=== PATIENT | male | born 1995 | race Caucasian/White ===

== ENCOUNTER 2019-12-24 22:48 | Emergency (ER) | payer BC, SELFPAY ==
[2019-12-24 23:28] LABS: Absolute Lymphocytes (CBC) 1.9 K/uL (0.7-4.9); Basophils % 0.3 % (0-1.3); Lymphocytes % 29.4 % (15.3-44.8); MPV 8.7 fL (7.6-11.3); Protime INR 1.03; RBC Red Blood Cell Count 4.92 M/uL (4.33-5.43)
[2019-12-24 23:43] LABS: ALT/SGPT 36 U/L (12-78); AST/SGOT 18 U/L (15-37); Albumin 3.6 g/dL (3.4-5.0); Alkaline Phosphatase 115 U/L (45-117); BUN Blood Urea Nitrogen 8 mg/dL (7-18); Bicarbonate 25 mmol/L (21-32); Bilirubin Direct 0.1 mg/dL (0-0.2); Bilirubin Total 0.6 mg/dL (0.2-1.0); Glucose Level 122 mg/dL (74-106); Magnesium 1.9 mg/dL (1.8-2.4); NT PRO-BNP 15 pg/mL (<125); Potassium 3.2 mmol/L (3.5-5.1); Protein, Total 6.4 g/dL (6.4-8.2); Sodium Level 143 mmol/L (136-145); Troponin (Emerg Dept Use Only) < 0.02 ng/mL (0.0-0.045)
[2019-12-25] MEDS ORDERED: POTASSIUM CL SA 10 MEQ TAB PO ONE (01:21)
[2019-12-25 01:44] LABS: Barbiturates NEGATIVE (NEGATIVE); Benzodiazepines NEGATIVE (NEGATIVE); Cocaine NEGATIVE (NEGATIVE); METHAMPHETAM NEGATIVE (NEGATIVE); Methadone NEGATIVE (NEGATIVE); Opiates NEGATIVE (NEGATIVE); Phencyclidine NEGATIVE (NEGATIVE); THC Cannibis NEGATIVE (NEGATIVE)
--- NOTE | 2019-12-25 03:47 | EDPHYS ---
Physician Documentation [facility] Name: Rafael Campbell Age: 24 yrs Sex: Male : 1995 Arrival Date: 12/24/2019 Time: 22:50 Bed 15 Private MD: ED Physician Maged Reyes HPI: 12/24 00:17 This 24 yrs old Male presents to ER via EMS with complaints of Chest Pain. [facility] 00:17 The patient or guardian reports chest pain that is located primarily in the anterior mh7 chest wall, left. The pain radiates to the left arm. Associated signs and symptoms: Pertinent positives: shortness of breath, Pertinent negatives: abdominal pain, cough, diaphoresis, dizziness, headache, lower extremity pain, lower extremity swelling, lightheadedness, nausea, near syncope, palpitations, recent travel, syncope, vomiting. The chest pain is described as stabbing. Duration: The patient or guardian reports a single episode, that is still ongoing, but improving. Modifying factors: The symptoms are alleviated by nothing. the symptoms are aggravated by movement. Severity of pain: At its worst the pain was moderate today, in the emergency department the pain has improved moderately. EMS care prior to arrival includes: aspirin. 00:17 States that he had belching then started to have left upper chest pain that radiated to mh7 his left arm. he also had some SOB. Denies any injuries, fever, cough, dizziness, numbness/tingling, or weakness.. Historical: - Allergies: 12/23 23:03 No Known Allergies; mt2 - Home Meds: 23:03 None [Active]; mt2 - PMHx: 23:03 Kidney stones; mt2 - Immunization history:: Adult Immunizations up to date. - Social history:: Smoking status: Patient reports the use of cigarette tobacco products, smokes one-half pack cigarettes per day, Patient/guardian denies using street drugs. ROS: 12/24 00:17 Constitutional: Negative for fever, chills, and weight loss, Eyes: Negative for injury, mh7 pain, redness, and discharge, ENT: Negative for injury, pain, and discharge, Neck: Negative for injury, pain, and swelling, Abdomen/GI: Negative for abdominal pain, nausea, vomiting, diarrhea, and constipation, Back: Negative for injury and pain, : Negative for injury, bleeding, discharge, and swelling, Skin: Negative for injury, rash, and discoloration, Neuro: Negative for headache, weakness, numbness, tingling, and seizure, Psych: Negative for depression, anxiety, suicide ideation, homicidal ideation, and hallucinations, Allergy/Immunology: Negative for hives, rash, and allergies, Endocrine: Negative for neck swelling, polydipsia, polyuria, polyphagia, and marked weight changes, Hematologic/Lymphatic: Negative for swollen nodes, abnormal bleeding, and unusual bruising. Exam: 00:17 Constitutional: This is a well developed, well nourished patient who is awake, alert, mh7 and in no acute distress. Head/Face: Normocephalic, atraumatic. Eyes: Pupils equal round and reactive to light, extra-ocular motions intact. Lids and lashes normal. Conjunctiva and sclera are non-icteric and not injected. Cornea within normal limits. Periorbital areas with no swelling, redness, or edema. Neck: Trachea midline, no thyromegaly or masses palpated, and no cervical lymphadenopathy. Supple, full range of motion without nuchal rigidity, or vertebral point tenderness. No Meningismus. 00:17 Cardiovascular: Regular rate and rhythm with a normal S1 and S2. No gallops, murmurs, or rubs. Normal PMI, no JVD. No pulse deficits. Respiratory: Lungs have equal breath sounds bilaterally, clear to auscultation and percussion. No rales, rhonchi or wheezes noted. No increased work of breathing, no retractions or nasal flaring. Abdomen/GI: Soft, non-tender, with normal bowel sounds. No distension or tympany. No guarding or rebound. No evidence of tenderness throughout. Back: No spinal tenderness. No costovertebral tenderness. Full range of motion. Skin: Warm, dry with normal turgor. Normal color with no rashes, no lesions, and no evidence of cellulitis. MS/ Extremity: Pulses equal, no cyanosis. Neurovascular intact. Full, normal range of motion. Neuro: Awake and alert, GCS 15, oriented to person, place, time, and situation. Cranial nerves II-XII grossly intact. Motor strength 5/5 in all extremities. Sensory grossly intact. Cerebellar exam normal. Normal gait. Psych: Awake, alert, with orientation to person, place and time. Behavior, mood, and affect are within normal limits. 00:17 Chest/axilla: Inspection: normal, Palpation: tenderness, that is moderate, of the anterior aspect of left upper chest, that totally reproduces the patient's complaints. 04:32 ECG was reviewed by the Attending Physician. [facility] Vital Signs: 12/23 22:45 BP 135 / 95; Pulse 67; Resp 17; Temp 98.1(O); Pulse Ox 97% on R/A; Weight 104.33 kg; mt2 Height 5 ft. 11 in. (180.34 cm); Pain 6/10; 12/24 00:00 BP 115 / 63; Pulse 66; Resp 16; Pulse Ox 96% on R/A; jb4 01:00 BP 107 / 67; Pulse 58; Resp 16; Pulse Ox 96% on R/A; jb4 02:00 BP 109 / 79; Pulse 57; Resp 16; Pulse Ox 100% on R/A; jb4 03:00 BP 120 / 77; Pulse 55; Resp 16; Pulse Ox 97% on R/A; jb4 03:45 BP 115 / 75; Pulse 53; Resp 16; Pulse Ox 98% on R/A; jb4 12/23 22:45 Body Mass Index 32.08 (104.33 kg, 180.34 cm) mt2 MDM: 00:03 Patient medically screened. [facility] 03:44 Differential diagnosis: acute myocardial infarction, anxiety, chest wall pain, 7 costochondritis, pericarditis, pneumonia, pneumothorax, pulmonary embolus. HEART Score: History: Slightly Suspicious (0), ECG: Non specific repolarization disturbance / LBTB / PM (1), Age: < or = 45 years (0), Risk Factors: 1 or 2 risk factors (1), [+ Family HX] Troponin: < or = 1 x Normal Limit (0), Total Score = 2. Data reviewed: vital signs, nurses notes, EMS record, lab test result(s), cardiac enzymes, CBC, electrolytes, urinalysis, EKG, radiologic studies, plain films. Data interpreted: Pulse oximetry: on room air is 100 %. Interpretation: normal. Counseling: I had a detailed discussion with the patient and/or guardian regarding: the historical points, exam findings, and any diagnostic results supporting the discharge/admit diagnosis, lab results, radiology results, the need for outpatient follow up, to return to the emergency department if symptoms worsen or persist or if there are any questions or concerns that arise at home. Response to treatment: the patient's symptoms have resolved after treatment, the patient's blood pressure is in an acceptable range, mental status has returned to baseline, the patient no longer shows bradycardia, the patient is not short of breath, the patient is not tachycardic, the patient's pain is gone, the patient's temperature has normalized. 12/23 23:05 Order name: Basic Metabolic Panel; Complete Time: 00:03 mt2 12/23 23:05 Order name: CBC with Diff; Complete Time: 00:03 hi2 12/23 23:05 Order name: LFT's; Complete Time: 00:03 hi2 12/23 23:05 Order name: Magnesium; Complete Time: 00:03 hi2 12/23 23:05 Order name: NT PRO-BNP; Complete Time: 00:03 hi2 12/23 23:05 Order name: PT-INR; Complete Time: 02:44 mt2 12/23 23:05 Order name: Troponin (emerg Dept Use Only); Complete Time: 00:03 hi2 12/23 23:05 Order name: XRAY Chest (1 view) mt2 12/24 01:27 Order name: Urine Drug Screen; Complete Time: 01:46 EDMS 12/24 01:33 Order name: D-Dimer; Complete Time: 02:44 EDMS 12/24 02:45 Order name: Troponin (emerg Dept Use Only); Complete Time: 03:41 mh7 12/23 23:05 Order name: EKG; Complete Time: 23:06 mt2 12/23 23:05 Order name: Cardiac monitoring; Complete Time: 23:07 mt2 12/23 23:05 Order name: EKG - Nurse/Tech; Complete Time: 23:05 hi2 12/23 23:05 Order name: IV Saline Lock; Complete Time: 23:05 mt2 12/23 23:05 Order name: Labs collected and sent; Complete Time: 23:07 mt2 12/23 23:05 Order name: O2 Per Protocol; Complete Time: 23:07 hi2 12/23 23:05 Order name: O2 Sat Monitoring; Complete Time: 23:05 mt2 EC:32 Rate is 75 beats/min. Rhythm is regular, Normal Sinus Rhythm. QRS [place] is Normal. CT mh7 interval is normal. QRS interval is normal. QT interval is normal. No Q waves. T waves are Inverted in lead V1. No ST changes noted. Clinical impression: NSR w/ Non-specific ST/T Changes. Administered Medications: 01:15 Drug: Potassium Chloride 40 mEq Route: PO; jb4 02:00 Follow up: Response: No adverse reaction jb4 Disposition: 06:17 Co-signature as Attending Physician, Maged Reyes MD. 7 Disposition: 12/25/19 03:46 Discharged to Home. Impression: Chest Pain. - Condition is Stable. - Discharge Instructions: Nonspecific Chest Pain, Shmi-lc-Fuph. - Medication Reconciliation Form, Thank You Letter, Antibiotic Education, Prescription Opioid Use form. - Work release form (12/25/19 19:36). bb - Follow up: Private Physician; When: 1 - 2 days; Reason: Worsening of condition, Recheck today's complaints, Continuance of care, Re-evaluation by your physician. - Problem is new. - Symptoms are resolved. Signatures: Dispatcher [employer] EDOR Javier Medina RN RN jb4 Maged Reyes MD MD 7 Josephine Enciso RN RN hi2 Shwetha Thakur RN bb Corrections: (The following items were deleted from the chart) 01:32 01:22 URINE DRUG SCREEN+CHEM UR.LAB.BRZ ordered. EDOR EDMS 01:32 01:22 D-DIMER+COAG.LAB.BRZ ordered. EDOR EDMS 04:06 03:46 12/25/2019 03:46 Discharged to Home. Impression: Chest Pain. Condition is Stable. jb4 Forms are Medication Reconciliation Form, Thank You Letter, Antibiotic Education, Prescription Opioid Use. Follow up: Private Physician; When: 1 - 2 days; Reason: Worsening of condition, Recheck today's complaints, Continuance of care, Re-evaluation by your physician. Problem is new. Symptoms are resolved. [facility]
--- NOTE | 2019-12-25 03:47 | ER ---
Nurse's Notes [facility] Name: Rafael Campbell Age: 24 yrs Sex: Male : 1995 Arrival Date: 12/24/2019 Time: 22:50 Bed 15 Private MD: Diagnosis: Chest Pain Presentation: 12/23 22:45 Chief complaint: EMS states: BIBA FROM WORK WITH SUDDEN ONSET OF LEFT SIDED CP mt2 RADIATING TO LEFT ARM. LEFT ARM WITH NUMBNESS AND WEAKNESS. PT DENIES N/V OR SOB. PT DENIES DRUGS OR ETOH. EKG NSR WITH EMS AND ASA 324 GIVEN. Coronavirus screen: Client denies travel out of the [place] in the last 14 days. At this time, the client does not indicate any symptoms associated with coronavirus-19. Ebola Screen: No symptoms or risks identified at this time. Initial Sepsis Screen: Does the patient meet any 2 criteria? No. Patient's initial sepsis screen is negative. Does the patient have a suspected source of infection? No. Patient's initial sepsis screen is negative. Risk Assessment: Do you want to hurt yourself or someone else? Patient reports no desire to harm self or others. Onset of symptoms. Care prior to arrival: Medication(s) given: ASA, 324 IV initiated. 22 GA, in the right antecubital area. 22:45 Method Of Arrival: EMS: [facility] mt2 22:45 Acuity: ALLY 3 mt2 Historical: - Allergies: 23:03 No Known Allergies; mt2 - Home Meds: 23:03 None [Active]; mt2 - PMHx: 23:03 Kidney stones; mt2 - Immunization history:: Adult Immunizations up to date. - Social history:: Smoking status: Patient reports the use of cigarette tobacco products, smokes one-half pack cigarettes per day, Patient/guardian denies using street drugs. Screenin:04 Abuse screen: Denies threats or abuse. Nutritional screening: No deficits noted. mt2 Tuberculosis screening: No symptoms or risk factors identified. Fall Risk None identified. Assessment: 22:50 General: Appears in no apparent distress. uncomfortable, Behavior is cooperative, jb4 anxious. Pain: Complains of pain in anterior aspect of left upper chest Pain does not radiate. Pain currently is 6 out of 10 on a pain scale. Quality of pain is described as stabbing, Pain began 30 min ago. Neuro: Level of Consciousness is awake, alert, obeys commands, Oriented to person, place, time, situation. Cardiovascular: Patient's skin is warm and dry. Rhythm is sinus rhythm. Respiratory: Airway is patent Respiratory effort is even, unlabored, Respiratory pattern is regular, symmetrical. GI: No signs and/or symptoms were reported involving the gastrointestinal system. : No signs and/or symptoms were reported regarding the genitourinary system. 23:50 Reassessment: Patient and/or family updated on plan of care and expected duration. Pain jb4 level reassessed. Patient is alert, oriented x 3, equal unlabored respirations, skin warm/dry/pink. Pt is resting calmly in bed. Remains A\T\Ox4. No s/s of distress noted. EENT: No signs and/or symptoms were reported regarding the EENT system. Derm: Skin is intact, Skin is pink, warm \T\ dry. Musculoskeletal: Circulation, motion, and sensation intact. Range of motion: intact in all extremities. 12/24 01:00 Reassessment: Patient and/or family updated on plan of care and expected duration. Pain jb4 level reassessed. Patient is alert, oriented x 3, equal unlabored respirations, skin warm/dry/pink. PT updated on POC. Pt is resting comfortably in bed, reports pain has decreased. to 2/10. Respirations are even and unlabored. No s/s of pain or distress are noted. 02:00 Reassessment: Patient and/or family updated on plan of care and expected duration. Pain jb4 level reassessed. Patient is alert, oriented x 3, equal unlabored respirations, skin warm/dry/pink. Pt is sitting up in bed. Reports feeling better. PT has his phone that his fiance brought to him. Updated on POC. 03:00 Reassessment: Patient and/or family updated on plan of care and expected duration. Pain jb4 level reassessed. Patient is alert, oriented x 3, equal unlabored respirations, skin warm/dry/pink. PT resting in bed comfortably. No s/s of pain or distress noted. 04:00 Reassessment: No changes from previously documented assessment. Patient and/or family jb4 updated on plan of care and expected duration. Pain level reassessed. Patient is alert, oriented x 3, equal unlabored respirations, skin warm/dry/pink. PT verbalized understanding of d/c and follow up instructions. Denies questions or concerns. Ambulated out of ED with steady gait. Vital Signs: 12/23 22:45 BP 135 / 95; Pulse 67; Resp 17; Temp 98.1(O); Pulse Ox 97% on R/A; Weight 104.33 kg; mt2 Height 5 ft. 11 in. (180.34 cm); Pain 6/10; 12/24 00:00 BP 115 / 63; Pulse 66; Resp 16; Pulse Ox 96% on R/A; jb4 01:00 BP 107 / 67; Pulse 58; Resp 16; Pulse Ox 96% on R/A; jb4 02:00 BP 109 / 79; Pulse 57; Resp 16; Pulse Ox 100% on R/A; jb4 03:00 BP 120 / 77; Pulse 55; Resp 16; Pulse Ox 97% on R/A; jb4 03:45 BP 115 / 75; Pulse 53; Resp 16; Pulse Ox 98% on R/A; jb4 12/23 22:45 Body Mass Index 32.08 (104.33 kg, 180.34 cm) mt2 ED Course: 12/23 22:50 Patient arrived in ED. mt2 22:56 Maged Reyes MD is Attending Physician. [facility] 23:03 Triage completed. mt2 23:03 Arm band placed on left wrist. EKG completed in triage. Results shown to MD. mt2 23:03 Patient has correct armband on for positive identification. Bed in low position. Call [facility] light in reach. Side rails up X 1. 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 Pulse ox on. NIBP on. 23:03 Maintain EMS IV. Dressing intact. Good blood return noted. Site clean \T\ dry. Gauge \T\ mt 2 site: 20 G. Patient maintains SpO2 saturation greater than 95% on room air. 23:05 Initial lab(s) drawn, by me, sent to lab. 4 23:07 Javier Medina, RN is Primary Nurse. [facility] 12/24 03:28 XRAY Chest (1 view) In Process Unspecified. EDMS 04:05 No provider procedures requiring assistance completed. IV discontinued, intact, jb4 bleeding controlled, No redness/swelling at site. Pressure dressing applied. Administered Medications: 01:15 Drug: Potassium Chloride 40 mEq Route: PO; jb4 02:00 Follow up: Response: No adverse reaction jb4 Outcome: 03:46 Discharge ordered by . mahnaz 04:05 Discharged to home ambulatory. jb4 04:05 Condition: stable 04:05 Discharge instructions given to patient, Instructed on discharge instructions, follow up and referral plans. Demonstrated understanding of instructions, follow-up care. 04:06 Patient left the ED. jb4 Signatures: Dispatcher [employer] EDJavier Lawson, RN RN jb4 Maged Reyes MD MD mh7 Josephine Enciso RN RN mt2
[2019-12-25 04:25] VITALS: BP 115/75; O2SAT 98
--- NOTE | 2019-12-25 07:28 | RAD REPORT ---
EXAM DESCRIPTION: RAD - Chest Single View - 12/25/2019 3:28 am CLINICAL HISTORY: CHEST PAIN COMPARISON: Portable June 2017 TECHNIQUE: AP portable chest image was obtained 12/25/2019 3:28 am . FINDINGS: Low lung volumes noted. No focal lung parenchymal process. Heart and vasculature are yesica l. No measurable pleural effusion and no pneumothorax. No acute bony abnormality seen. No acute aorti c findings suspected. IMPRESSION: No acute cardiopulmonary process. No significant change from comparison.
== END 2019-12-25 04:06 | disposition home or self-care (01) ==
LOC: ER 22:48
DX: R07.9 Chest pain, unspecified (principal); F17.210 Nicotine dependence, cigarettes, uncomplicated
CPT/HCPCS: 36415; 71045; 80048; 80076; 80307; 83735; 83880; 84484; 85025; 85379; 85610; 93005; 99285

== ENCOUNTER 2022-11-24 20:33 | Emergency (ER) | payer BC, SELFPAY ==
--- OUTSIDE RECORDS SUMMARY | 2022-11-24 20:36 | XMS REPORT | Continuity of Care Document ---
:1995 Author Organization [facility] t Address [address] [facility] [address] [place] [id number] Care Team Providers Name Role Phone jailene Attending Clinician Unavailable jailene Admitting Clinician Unavailable Problems This patient has no known problems. Allergies, Adverse Reactions, Alerts This patient has no known allergies or adverse reactions. Medications This patient has no known medications. Procedures This patient has no known procedures. Encounters Start End Encounter Admission Attending Care Care Encounter Source Date/Time Date/Time Type Type Clinicians Facility Department ID 2020-09-20 2020-09-20 Outpatient jailene [id number] 10:05:00 10:05:00 [id number] 2020-02-16 2020-02-16 Outpatient [facility] [id number] 00:00:00 00:00:[address] 2017-02-16 2017-02-16 Outpatient [facility] [id number] 10:50:00 10:50:00 00 l Alex Results This patient has no known results.
--- NOTE | 2022-11-24 22:37 | RAD REPORT ---
EXAM DESCRIPTION: CT - Head C Spine Cap [place] - 11/24/2022 9:49 pm CLINICAL HISTORY: fall COMPARISON: No comparisons TECHNIQUE: Head and cervical spine CT images were obtained without IV contrast. Chest, abdomen, and pelvis CT images were obtained following intravenous administration of 100 mL Isovue-300. Multiplanar reformats were generated and reviewed. All CT scans are performed using dose optimization technique as appropriate and may include automated exposure control or mA/KV adjustment according to patient size. FINDINGS: CT HEAD: No intracranial hemorrhage, mass effect, or edema. No evidence of acute territorial infarct. No midli ne shift or abnormal fluid collection. The ventricles are normal in caliber and configuration for age . Basal cisterns are patent. Mastoid air cells are well aerated. Bilateral maxillary sinus and right sphenoid sinus mucous retention cysts. No acute skull fracture. CT CERVICAL SPINE: No acute cervical spine fracture or subluxation. Vertebral body heights are well maintained. Straight ening of normal cervical lordosis which may be positional or secondary to muscle spasm. Facet joints are normal in alignment. No hyperattenuating canal hematoma. Prevertebral and paraspinous soft tissue s are unremarkable. CT CHEST: No pneumothorax, pulmonary contusion or pleural fluid collection. Bilateral dependent platelike atele ctasis. No mediastinal hematoma and the aorta and pulmonary arteries are unremarkable. No chest will mass or abnormal axillary finding. No displaced rib fracture or other significant bony finding. CT ABDOMEN/ PELVIS: No evidence of traumatic injury to solid abdominal viscera. Gallbladder and biliary tree are unremark able. No bowel injury or significant finding. No free air, free fluid or abnormal fat stranding. No u rinary bladder abnormality. No significant bony finding. IMPRESSION: No acute traumatic findings. Bilateral maxillary sinus and right sphenoid sinus mucous retention cysts. Straightening of normal cervical lordosis which may be positional secondary to muscle spasm.
[2022-11-24 23:06] LABS: Hematocrit 44.8 % (39.6-49.0); RBC Red Blood Cell Count 4.92 M/uL (4.33-5.43)
[2022-11-24] MEDS ORDERED: CYCLOBENZAPRINE 10 MG TAB ONE (23:09)
[2022-11-24] MEDS ORDERED: KETOROLAC 30 MG/ML INJ ONE (23:09)
[2022-11-24] MEDS ORDERED: MORPHINE 4 MG/ML SYR ONE (23:09)
[2022-11-24] MEDS ORDERED: ONDANSETRON 4 MG/2 ML VIAL ONE (23:10)
[2022-11-24] MEDS ORDERED: NA CHLORIDE 0.9% 1,000 ML ONE (23:10)
[2022-11-24 23:24] LABS: Albumin 3.6 g/dL (3.4-5.0); Bilirubin Total 0.6 mg/dL (0.2-1.0); Potassium 4.4 mEq/L (3.5-5.1); Protein, Total 6.7 g/dL (6.4-8.2)
--- NOTE | 2022-11-24 23:47 | EDPHYS ---
Physician Documentation [facility] Name: Rafael Campbell Age: 27 yrs Sex: Male : 1995 Arrival Date: 11/24/2022 Time: 20:33 Bed 15 Private MD: ED Physician Donavon Nunez HPI: 11/25 02:38 This 27 yrs old Male presents to ER via Ambulatory with complaints of Fever, Fall rt Injury, Vomiting. 02:38 Patient presents to the ED with nausea, vomiting, diarrhea, generalized abdominal pain rt all day today. The patient states that his dog caused him to trip, causing him to fall down about 15 stairs injuring his tailbone. He reports a worsening of his chronic back pain since then. He reports feeling feverish. Denies other acute complaints at this time. Symptoms are moderate severity, no other aggravating alleviating factors.. 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 - Family history:: not pertinent. ROS: 11/25 02:38 Constitutional: Negative for fever, chills, and weight loss, Cardiovascular: Negative rt for chest pain, palpitations, and edema, MS/Extremity: Negative for injury and deformity, Skin: Negative for injury, rash, and discoloration, Neuro: Negative for headache, weakness, numbness, tingling, and seizure, Psych: Negative for depression, anxiety, suicide ideation, homicidal ideation, and hallucinations. Abdomen/GI: Positive for abdominal pain, nausea, vomiting, and diarrhea. Back: Positive for pain at rest, pain with movement. Exam: 02:38 Constitutional: This is a well developed, well nourished patient who is awake, alert, rt and in no acute distress. Head/Face: Normocephalic, atraumatic. Neck: Trachea midline, no thyromegaly or masses palpated, and no cervical lymphadenopathy. Supple, full range of motion without nuchal rigidity, or vertebral point tenderness. No Meningismus. Chest/axilla: Normal chest wall appearance and motion. Nontender with no deformity. No lesions are appreciated. Cardiovascular: Regular rate and rhythm with a normal S1 and S2. No gallops, murmurs, or rubs. Normal PMI, no JVD. No pulse deficits. Respiratory: Lungs have equal breath sounds bilaterally, clear to auscultation and percussion. No rales, rhonchi or wheezes noted. No increased work of breathing, no retractions or nasal flaring. Abdomen/GI: Soft, non-tender, with normal bowel sounds. No distension or tympany. No guarding or rebound. No evidence of tenderness throughout. MS/ Extremity: Pulses equal, no cyanosis. Neurovascular intact. Full, normal range of motion. Neuro: Awake and alert, GCS 15, oriented to person, place, time, and situation. Cranial nerves II-XII grossly intact. Motor strength 5/5 in all extremities. Sensory grossly intact. Cerebellar exam normal. Normal gait. Psych: Awake, alert, with orientation to person, place and time. Behavior, mood, and affect are within normal limits. 02:38 Back: Paraspinal tenderness diffusely throughout back, no step-off. Vital Signs: 11/24 20:56 Weight 108.86 kg; Height 5 ft. 11 in. ; Pain 10/10; vc1 20:59 BP 132 / 80; Pulse 87; Resp 15; Pulse Ox 100% ; vc1 21:03 Temp 98.9; vc1 11/25 00:00 BP 111 / 67; Pulse 61; Resp 15 S; Pulse Ox 99% on R/A; ha1 11/24 20:56 Body Mass Index 33.47 (108.86 kg, 180.34 cm) vc1 11/24 20:56 Pain Scale: Adult vc1 MDM: 11/24 20:58 Patient medically screened. rt 11/25 02:38 Differential diagnosis: Spinal fracture, colitis, gastroenteritis, musculoskeletal back rt pain. Data reviewed: vital signs, nurses notes, lab test result(s), radiologic studies. I considered the following discharge prescriptions or medication management in the emergency department Medications were administered in the Emergency Department. See MAR. Independent interpretation of the following test(s) in the Emergency Department CT Scan: My interpretation is No brain hemorrhage seen on interpretation CT scan images. Care significantly affected by the following chronic conditions: Degenerative disc disease. Counseling: I had a detailed discussion with the patient and/or guardian regarding: the historical points, exam findings, and any diagnostic results supporting the discharge/admit diagnosis, lab results, radiology results, the need for outpatient follow up. Response to treatment: the patient's symptoms have markedly improved after treatment. 11/24 21:04 Order name: CBC with Diff; Complete Time: 23:29 rt 11/24 21:04 Order name: CMP; Complete Time: 23:29 rt 11/24 21:04 Order name: Lipase; Complete Time: 23:29 rt 11/24 21:04 Order name: CT Traumagram (Head C Spine CAP W Con); Complete Time: 22:51 rt 11/24 21:04 Order name: IV Saline Lock; Complete Time: 22:57 rt 11/24 21:04 Order name: Labs collected and sent; Complete Time: 23:06 rt Administered Medications: 11/24 23:08 Drug: NS 0.9% IV 1000 ml Route: IV; Rate: 1 bolus; Site: right antecubital; vc1 23:08 Drug: TORadol - Ketorolac IVP 15 mg Route: IVP; Site: right antecubital; vc1 23:08 Drug: Ondansetron IVP 4 mg Route: IVP; Site: right antecubital; vc1 23:08 Drug: morphine IVP or IV 4 mg Route: IVP; Infused Over: 4 mins; Site: right antecubital;vc1 23:08 Drug: Cyclobenzaprine PO 10 mg Route: PO; vc1 Disposition Summary: 11/24/22 23:47 Discharge Ordered Location: Home rt Problem: an acute exacerbation rt Symptoms: have improved rt Condition: Stable rt Diagnosis - Nausea with vomiting, unspecified rt - Diarrhea, unspecified rt - Low back pain rt Followup: rt - With: Private Physician - When: 2 - 3 days - Reason: Discharge Instructions: - Discharge Summary Sheet rt - Acute Back Pain, Adult rt - Diarrhea, Adult rt - Nausea and Vomiting, Adult rt Forms: - Work release form rt - Medication Reconciliation Form rt - Thank You Letter rt - Antibiotic Education rt - Prescription Opioid Use rt - [email or web address] rt Prescriptions: - ondansetron 4 mg Oral Tablet,disintegrating - take 1 tablet by ORAL route every 6 hours; 18 tablet; Refills: 0, Product rt Selection Permitted Signatures: Dispatcher [employer] Renae Jaime RN RN vc1 Donavon Nunez MD MD rt
--- NOTE | 2022-11-24 23:47 | ER ---
Nurse's Notes [facility] Name: Rafael Campbell Age: 27 yrs Sex: Male : 1995 Arrival Date: 11/24/2022 Time: 20:33 Bed 15 Private MD: Diagnosis: Nausea with vomiting, unspecified;Diarrhea, unspecified;Low back pain Presentation: 11/24 20:56 Chief complaint: Patient states: "I was running a fever earlier I've had a headache all vc1 day, vomiting, pooping. My dog knocked me down the stairs and I fell on my tail bone so my tail bone is hurting.". Coronavirus screen: Vaccine status: Patient reports receiving the 2nd dose of the covid vaccine. Moderna Client denies travel out of the [place] in the last 14 days. At this time, the client does not indicate any symptoms associated with coronavirus-19. Ebola Screen: Patient negative for fever greater than or equal to 101.5 degrees Fahrenheit, and additional compatible Ebola Virus Disease symptoms Patient denies exposure to infectious person. Patient denies travel to an Ebola-affected area in the 21 days before illness onset. No symptoms or risks identified at this time. Risk Assessment: Do you want to hurt yourself or someone else? Patient reports no desire to harm self or others. Onset of symptoms was November 23, 2022. 20:56 Method Of Arrival: Ambulatory vc1 20:56 Acuity: ALLY 3 vc1 21:03 Initial Sepsis Screen: Does the patient meet any 2 criteria? No. Patient's initial vc1 sepsis screen is negative. Does the patient have a suspected source of infection? No. Patient's initial sepsis screen is negative. Triage Assessment: 21:01 General: Appears uncomfortable, Behavior is cooperative, restless. Pain: Complains of vc1 pain in coccyx Pain does not radiate. Pain currently is 10 out of 10 on a pain scale. EENT: No deficits noted. No signs and/or symptoms were reported regarding the EENT system. Neuro: Level of Consciousness is awake, alert, obeys commands, Oriented to person, place, time, situation, Appropriate for age. Cardiovascular: No deficits noted. Respiratory: Airway is patent Respiratory effort is even, unlabored, Respiratory pattern is regular, symmetrical. GI: Abdomen is round non-distended, Reports upper abdominal pain, diarrhea, epigastric pain, intolerance of fluids, intolerance of food, nausea, vomiting. : No deficits noted. No signs and/or symptoms were reported regarding the genitourinary system. Derm: No deficits noted. No signs and/or symptoms reported regarding the dermatologic system. Musculoskeletal: Reports pain in back. Historical: - Allergies: 20:58 No Known Allergies; vc1 - Home Meds: 20:58 None [Active]; vc1 - PMHx: 20:58 Kidney stones; degenerative muscle loss, L4 L5; Bulging disk; vc1 - PSHx: 20:58 None; vc1 - Immunization history:: Adult Immunizations up to date. - Family history:: not pertinent. Screenin/08 00:02 Abuse screen: Denies threats or abuse. Denies injuries from another. Has been ha1 threatened or abused. Nutritional screening: No deficits noted. Tuberculosis screening: No symptoms or risk factors identified. Assessment: 00:01 Reassessment: Patient and/or family updated on plan of care and expected duration. Pain ha1 level reassessed. Patient is alert, oriented x 3, equal unlabored respirations, skin warm/dry/pink. Patient states symptoms have improved. Vital Signs: 11/24 20:56 Weight 108.86 kg; Height 5 ft. 11 in. ; Pain 10/10; vc1 20:59 BP 132 / 80; Pulse 87; Resp 15; Pulse Ox 100% ; vc1 21:03 Temp 98.9; vc1 11/25 00:00 BP 111 / 67; Pulse 61; Resp 15 S; Pulse Ox 99% on R/A; ha1 11/24 20:56 Body Mass Index 33.47 (108.86 kg, 180.34 cm) vc1 11/24 20:56 Pain Scale: Adult vc1 ED Course: 11/24 20:37 Patient arrived in ED. ja2 20:53 Donavon Nunez MD is Attending Physician. rt 20:58 Triage completed. vc1 21:01 Arm band placed on left wrist. vc1 21:10 Radiology exam delayed due to lab results not completed at this time. (BUN/Creatinine) ls3 IV insertion attempt and/or patient not having appropriate IV at this time. 21:51 CT Traumagram (Head C Spine CAP W Con) In Process Unspecified. EDMS 23:05 Initial lab(s) drawn, by mo, sent to lab. Inserted saline lock: 20 gauge in right jw7 antecubital area, using aseptic technique. ,using aseptic technique. inserted by CT. 23:06 CBC with Diff Sent. jw7 23: CMP Sent. 7 23: Lipase Sent. [facility] 23: Renae Bobby, RN is Primary Nurse. vc1 11/25 00:02 No provider procedures requiring assistance completed. IV discontinued, intact, ha1 bleeding controlled, No redness/swelling at site. Pressure dressing applied. Administered Medications: 11/24 23:08 Drug: NS 0.9% IV 1000 ml Route: IV; Rate: 1 bolus; Site: right antecubital; vc1 23:08 Drug: TORadol - Ketorolac IVP 15 mg Route: IVP; Site: right antecubital; vc1 23:08 Drug: Ondansetron IVP 4 mg Route: IVP; Site: right antecubital; vc1 23:08 Drug: morphine IVP or IV 4 mg Route: IVP; Infused Over: 4 mins; Site: right antecubital;vc1 23:08 Drug: Cyclobenzaprine PO 10 mg Route: PO; vc1 Medication: 11/25 00:02 VIS not applicable for this client. ha1 Outcome: 11/24 23:47 Discharge ordered by . rt 11/25 00:01 Discharged to home ambulatory, with family. ha1 Condition: stable Discharge instructions given to patient, family, Instructed on discharge instructions, follow up and referral plans. medication usage, Demonstrated understanding of instructions, follow-up care, medications, Prescriptions given X 1. 00:02 Patient left the ED. ha1 Signatures: Dispatcher [employer] EDMS Yvette Lundberg ls3 Ailyn Salazar ja2 Renae Bobby RN RN vc1 Arlin Hernandez jw7 Carolin Ray RN RN ha1 Donavon Nunez MD MD rt
== END 2022-11-25 00:02 | disposition home or self-care (01) ==
LOC: ER 20:33
DX: R11.2 Nausea with vomiting, unspecified (principal); R19.7 Diarrhea, unspecified; M54.50 Low back pain, unspecified; R50.9 Fever, unspecified
CPT/HCPCS: 36415; 70450; 71260; 72125; 74177; 80053; 83690; 85025; 96374; 96375; 99284; J2405; J7030; Q9967